=== PATIENT | female | born 1980 | race Caucasian/White ===

== ENCOUNTER → 2017-05-26 | Outpatient (CLI) | payer OTHER ==
[~2017-05-26] MED LIST: ARMOUR THYROID15 M1 PO; BENADRYL25 M1 PO; DICLOFENAC POTA50 MG PO; DOLOBID500 MG PO; DONNATAL1 TAB PO; HYDROCODONE BIT1 T11 PO; MEDROL DOSEPAK4 MG PO; MIRALAX POWDER255 GM PO; MOTRIN800 MG PO; NKHM; NORFLEX100 MG PO; PROVENTIL0.09 MG/AC IH; TAMIFLU75 MG PO; TOPAMAX200 MG PO; VICODIN 5/500 505 MG PO; XANAX0.5 MG PO; ZANTAC150 MG PO; ZOFRAN4 MG PO
[2017-05-26 09:29] LABS: BASO % 0.4 % (0.0-1.0); EOS # 0.5 10*3/uL (0.0-0.4); EOS % 6.9 % (1.0-4.0); HEMATOCRIT 38.4 % (37.0-47.0); HEMOGLOBIN 12.5 g/dl (12.0-16.0); LYMPH # 2.1 10*3/uL (1.3-4.4); LYMPH % 26.9 % (27.0-41.0); MEAN CELL VOLUME 89.9 fl (81.0-99.0); MEAN CORPUSCULAR HGB 29.3 pg (27.0-31.0); MEAN CORPUSCULAR HGB CONC 32.6 g/dl (33.0-37.0); MEAN PLATELET VOLUME 9.8 fl (9.6-12.3); MONO # 0.7 10*3/uL (0.1-1.0); MONO % 9.2 % (3.0-9.0); NEUT # 4.3 10*3/uL (2.3-7.9); NEUT % 56.3 % (47.0-73.0); PLATELET COUNT AUTOMATED 389 10*3/uL (130-400); RED BLOOD COUNT 4.27 10*6/uL (4.10-5.10); WHITE BLOOD COUNT 7.6 10*3/uL (4.8-10.8)
[2017-05-26 09:52] LABS: ALBUMIN 3.3 gm/dl (3.1-4.5); ALKALINE PHOSPHATASE 122 U/L (45-117); BUN 8 mg/dl (7-24); CHLORIDE 103 mmol/L (98-107); CHOLESTEROL 190 mg/dL (<200); CREATININE 0.83 mg/dL (0.55-1.02); HDL CHOLESTEROL 36 mg/dl (40-60); LDL CHOLESTEROL 128 mg/dL (9-159); POTASSIUM 3.4 mmol/L (3.5-5.1); SGOT/AST 21 IU/L (3-35); SGPT/ALT 38 U/L (12-78); SODIUM 136 mmol/L (136-145); T3 UPTAKE 29 % (31-39); THYROXINE (T4) TOTAL 8.6 ug/dl (4.8-13.9); TOTAL PROTEIN 8.1 gm/dL (6.4-8.2); TRIGLYCERIDES 128 mg/dl (<150); VLDL CHOLESTEROL 26 mg/dL (6-40)
== END | disposition home or self-care (01) ==
LOC: US 05-24 15:00 → LAB 08:58 → US 15:00
PROVIDERS: Registered Nurse Flight
DX: K44.9 Diaphragmatic hernia without obstruction or gangrene (principal); E05.90 Thyrotoxicosis, unspecified without thyrotoxic crisis or storm; R73.09 Other abnormal glucose

== ENCOUNTER → 2017-06-20 | Outpatient (CLI) | payer OTHER | END | disposition home or self-care (01) | LOC: RAD 06-17 08:00 → RAD/SH 07:59 → RAD 08:00 | DX: R07.89 Other chest pain (principal); R13.10 Dysphagia, unspecified ==

== ENCOUNTER 2022-03-26 17:29 | Emergency (ER) | payer OTHER ==
[~2022-03-26] VITALS: Wt 108.9 kg
[2022-03-26] MEDS ORDERED: METHOCARBAMOL500 M1 PO (21:13)
== END 2022-03-26 21:32 | disposition home or self-care (01) ==
LOC: ED 17:29
DX: S13.8XXA Sprain of joints and ligaments of other parts of neck, initial encounter (principal); S33.9XXA Sprain of unspecified parts of lumbar spine and pelvis, initial encounter; Z90.49 Acquired absence of other specified parts of digestive tract; Z79.899 Other long term (current) drug therapy; Z88.0 Allergy status to penicillin; Z91.040 Latex allergy status; Z88.8 Allergy status to other drugs, medicaments and biological substances; V49.88XA Car occupant (driver) (passenger) injured in other specified transport accidents, initial encounter; Y93.89 Activity, other specified; Y92.413 State road as the place of occurrence of the external cause; Y99.9 Unspecified external cause status

== ENCOUNTER → 2024-03-28 | Outpatient (CLI) | payer SELFPAY ==
[~2024-03-28] MED LIST changes: +METHOCARBAMOL500 M1 PO
== END | disposition home or self-care (01) ==
LOC: RESCLI 00:36
PROVIDERS: ATTEND Internal Medicine
DX: J45.909 Unspecified asthma, uncomplicated (principal); R60.9 Edema, unspecified; H60.90 Unspecified otitis externa, unspecified ear; Z91.040 Latex allergy status; Z88.0 Allergy status to penicillin; Z88.8 Allergy status to other drugs, medicaments and biological substances; Z98.890 Other specified postprocedural states; Z82.49 Family history of ischemic heart disease and other diseases of the circulatory system; Z90.49 Acquired absence of other specified parts of digestive tract; Z79.899 Other long term (current) drug therapy

== ENCOUNTER → 2025-06-04 | Outpatient (CLI) | payer SELFPAY ==
[~2025-06-04] MED LIST changes: +ASMANEX HFA13 G1 INH; +ATIVAN1 MG PO; +CYCLOBENZAPRINE10 MG PO; +LASIX20 MG PO; +METOPROLOL SUCC25 M2 PO; +OMEPRAZOLE MAGN20 MG PO; +ONDANSETRON HYDR4 MG PO; +SUMATRIPTAN SUC50 M1 PO
== END | disposition home or self-care (01) ==
LOC: RESCLI 13:42
PROVIDERS: ATTEND Internal Medicine
DX: R13.10 Dysphagia, unspecified (principal); I10 Essential (primary) hypertension; Z79.899 Other long term (current) drug therapy; Z98.890 Other specified postprocedural states

== ENCOUNTER → 2025-07-01 | Day surgery (SDC) | payer SELFPAY ==
[~2025-07-01] VITALS: Ht 167.6 cm; Wt 108.9 kg
[~2025-07-01] MED LIST changes: +Lactated Ringer's Solution 1,000 ML IV ONE; +Lidocaine Hydrochloride 2% 5 ML SDV IV ONE; +PROPOFOL 200 MG/20 ML VIAL IV ONE
[2025-07-01 07:31] VITALS: BP 150/78
[2025-07-01 08:31] VITALS: BP 115/71
[2025-07-01 08:46] VITALS: BP 115/75
[2025-07-01 09:01] VITALS: BP 121/79
== END | disposition home or self-care (01) ==
LOC: SDC 06-27 08:45
PROVIDERS: ATTEND Surgery
DX: R13.10 Dysphagia, unspecified (principal); I10 Essential (primary) hypertension; R00.0 Tachycardia, unspecified; E07.9 Disorder of thyroid, unspecified; I20.9 Angina pectoris, unspecified; F43.10 Post-traumatic stress disorder, unspecified; J45.909 Unspecified asthma, uncomplicated; K44.9 Diaphragmatic hernia without obstruction or gangrene; Z90.49 Acquired absence of other specified parts of digestive tract; Z90.89 Acquired absence of other organs; Z98.890 Other specified postprocedural states; Z79.899 Other long term (current) drug therapy; Z88.8 Allergy status to other drugs, medicaments and biological substances

== ENCOUNTER → 2025-08-06 | Outpatient (CLI) | payer SELFPAY ==
[~2025-08-06] MED LIST changes: -Lactated Ringer's Solution 1,000 ML IV ONE; -Lidocaine Hydrochloride 2% 5 ML SDV IV ONE; -PROPOFOL 200 MG/20 ML VIAL IV ONE
== END | disposition home or self-care (01) ==
LOC: RESCLI 13:18
PROVIDERS: ATTEND Internal Medicine
DX: J45.909 Unspecified asthma, uncomplicated (principal); R60.0 Localized edema; F41.9 Anxiety disorder, unspecified; Z98.890 Other specified postprocedural states; Z90.49 Acquired absence of other specified parts of digestive tract; Z82.49 Family history of ischemic heart disease and other diseases of the circulatory system; Z88.5 Allergy status to narcotic agent; Z88.8 Allergy status to other drugs, medicaments and biological substances; Z79.899 Other long term (current) drug therapy